=== PATIENT | female | born 2000 | race Hispanic/Latino ===

== ENCOUNTER 2021-03-09 14:54 | Emergency (ER) | payer SELFPAY ==
[~2021-03-09] VITALS: Ht 149.9 cm; Wt 59.0 kg
[2021-03-09] MEDS ORDERED: VALACYCLOVIR HCL1 GM PO (15:30)
[2021-03-09] MEDS ORDERED: PREDNISONE20 MG PO (15:30)
[2021-03-09 15:46] VITALS: BP 135/88
== END 2021-03-09 15:55 | disposition home or self-care (01) | DRG 74 ==
LOC: ED 14:54
DX: G51.0 Bell's palsy (principal)

== ENCOUNTER 2021-07-22 20:17 | Emergency (ER) | payer OTHER ==
[~2021-07-22] VITALS: Ht 147.3 cm; Wt 57.0 kg
[~2021-07-22 20:17] MED LIST: PREDNISONE20 MG PO; VALACYCLOVIR HCL1 GM PO
[2021-07-22 23:30] VITALS: BP 126/57
== END 2021-07-22 23:30 | disposition home or self-care (01) | DRG 563 ==
LOC: ED 20:17
DX: S39.012A Strain of muscle, fascia and tendon of lower back, initial encounter (principal); V49.40XA Driver injured in collision with unspecified motor vehicles in traffic accident, initial encounter

== ENCOUNTER 2022-07-31 16:58 | Emergency (ER) | payer SELFPAY ==
[~2022-07-31] VITALS: Ht 147.3 cm; Wt 59.1 kg
[2022-07-31] VITALS (22 sets, daily range): BP systolic 97–137; BP diastolic 58–90
[2022-07-31 17:23] LABS: HEMATOCRIT 38.6 % (37.0-47.0); HEMOGLOBIN 13.2 g/dl (12.0-16.0); IMMATURE GRANULOCYTES 0.1 % (0.0-5.0); MEAN CELL VOLUME 90.4 fL CALC (80.0-100.0); MEAN CORPUSCULAR HGB 30.9 pG CALC (26.0-32.0); MEAN CORPUSCULAR HGB CONC 34.2 g/dL CAL (32.0-36.0); NEUT# 8.95 thou/uL (2.00-7.15); RED BLOOD COUNT 4.27 mill/uL (4.20-5.60); RED CELL DISTRI WIDTH 12.1 % (11.5-15.5)
[2022-07-31 17:41] LABS: ALBUMIN 4.8 g/dL (3.2-5.0); ALKALINE PHOSPHATASE 77 u/l (38-126); ANION GAP 15 (6-22 (CALC)); BILIRUBIN, TOTAL 0.4 mg/dL (0.0-1.4); BUN 16 mg/dL (7-17); BUN/CREATININE RATIO 30 (12-20 (CALC)); CARBON DIOXIDE 22 mmol/l (22-30); CHLORIDE 109 mmol/l (95-108); CREATININE 0.5 mg/dL (0.5-1.0); GFR FOR AFR.AMER. > 60 ML/MIN (>=60 (CALC)); GFR OTHER RACES > 60 ML/MIN (>=60 (CALC)); POTASSIUM 3.7 mmol/l (3.5-5.1); SGOT/AST 31 u/l (14-36); SODIUM 142 mmol/l (137-146); TOTAL PROTEIN 8.2 g/dL (6.3-8.2)
[2022-08-01] MEDS ORDERED: CEPHALEXIN500 M1 PO (11:14)
[2022-08-01] MEDS ORDERED: BACTRIM DS1 TAB PO (11:17)
== END 2022-07-31 19:00 | disposition home or self-care (01) | DRG 601 ==
LOC: ED 16:58
PROVIDERS: Family Medicine
DX: N61.0 Mastitis without abscess (principal)